=== PATIENT | female | born 1965 | race Caucasian/White ===

== ENCOUNTER 2017-01-07 08:18 | Day surgery (SDC) | payer BC, OTHER ==
[2017-01-04 12:07] LABS: CALCIUM, SERUM 8.8 MG/DL (8.5-10.4); CHLORIDE, SERUM 107 MMOL/L (96-112); CO2 (CARBON DIOXIDE) 22 MMOL/L (24-34); GFR AFRICAN AMERICAN 121 ML/MIN (>=60); GFR NON AFRICAN AMERICAN 104 ML/MIN (>=60); GLUCOSE, SERUM 114 MG/DL (60-99); POTASSIUM, SERUM 4.3 MMOL/L (3.5-5.3); SODIUM, SERUM 139 MMOL/L (135-148)
[2017-01-04 12:08] LABS: BUN (BLOOD UREA NITROGEN) 9 MG/DL (6-23)
--- NOTE | ~2017-01-07 | OP ---
Record Of Operation [facility] [address] [place]. [address] NAME: MEHDI VANCE : 61 STATUS : [facility]#: [id number] AGE: 51 ADM/REG DATE : 01/07/17 MR#: [id number] REPORT SERV DATE: 01/08/17 DICTATED BY: KATH SANCHEZ JR. DATE: 01/07/17 REPORT STATUS : Draft TRANSCRIBED BY: RICHARD DATE: 01/07/17 DATE OF PROCEDURE: 01/07/2017 KETTLE HAND: Daryl Freed. PROCEDURE: Placement of venous access port with C-arm fluoroscopy. PREOPERATIVE DIAGNOSIS: Phlebosclerosis, history of recurrent infections. POSTOPERATIVE DIAGNOSIS: Phlebosclerosis, history of recurrent infections. ANESTHESIA: General. INDICATIONS: The patient has history of multiple infections mostly in the bladder, which have been difficult to treat secondary to multiple antibiotic allergies and need for frequent IV antibiotics. She has phlebosclerosis with poor venous access and port placement is indicated for penitentiary venous access. She has had previous port in the past from both the right and left sides and most recently left had been removed because of fungal infection. FINDINGS: The left subclavian vein was easily accessed. A wire could not initially be passed into the SVC, but with fluoroscopic guidance, a Roadrunner type flexible tip wire was able to be passed into the SVC and in the catheter. When the catheter was then positioned in the distal SVC at the atrial junction, the blood flow was not able to be accomplished. It was withdrawn out to the innominate where good aspiration of blood and flushing was obtained and it was left in this location. It was felt that there could be chronic thrombus or other abnormality from her multiple previous ports. No other significant findings were encountered. DESCRIPTION OF PROCEDURE: With adequate general anesthesia, the patient was placed in supine position. The left and right side of the neck and chest were prepped and draped sterilely. 0.5% Marcaine was used for local filtration. The left subclavian vein was punctured, and a guidewire was introduced as noted above. It was introduced in the SVC and then an infraclavicular incision was made and a subcutaneous pocket was created of a size of the port, previous to the port pocket. It was very superficial and there was retraction of skin, this was placed deep to the scar on the surface of the pectoralis major muscle. Then the peel-away sheath was placed over the wire. The introducer was removed and the catheter was placed over the wire into the SVC and the wire was removed as noted. Aspiration could not be accomplished so this was retracted back into the innominate where it was left in place. It was trimmed and attached to one locking hub, which was secured in place. The port was placed into its pocket and secured with an underlying suture of 2-0 Prolene, which was also secured the locking hub device. Hemostasis with Bovie cautery. The wound was closed with subcutaneous 3-0 Vicryl and dermal with Monocryl. Aspirated blood satisfactorily at this location and was flushed with heparinized saline. Sterile dressings were applied. The patient left the operating room in satisfactory condition. Record Of Operation [facility] [address] [facility] [place]. [address] NAME: MEHDI VANCE : 61 STATUS : [facility] PAT#: [id number] AGE: 51 ADM/REG DATE : 01/07/17 MR#: [id number] REPORT SERV DATE: 01/08/17 DICTATED BY: KATH SANCHEZ JR. DATE: 01/07/17 REPORT STATUS : Draft TRANSCRIBED BY: RICHARD DATE: 01/07/17 ESTIMATED BLOOD LOSS: 50 mL. FILI/RICHARD Kath Sanchez Jr., M.D. / [id number] CC: Angelica Francisco Jr., N.P.
[~2017-01-07 08:18] MED LIST: ACCUNEB INH; ADVAIR HFA PO; ADVAIR115P INH; ALBUTEROL5 INH; ALTA5 PO; AMB10 PO; APRISO0.375 GM PO; AZACT2 IV; AZACTAM1 IM; AZACTAM1 IV; BACLOFEN20 MG PO; BENTYL10 PO; BENTYL20 PO; COREG3 PO; FLUCON150 PO; GGACUDL PO; HYDROCHLOROT25 MG PO; IMOD PO; KAPIDEX30 MG PO; KAPIDEX60 MG PO; KLONO1 PO; L20 PO; LASIX; LIDODERM TOP; LIOR10 PO; LORTAB 10/325; LORTAB10 PO; MAX25 PO; MELATONIN5 M1 PO; METHOC500B PO; NASACORTAQ NAS; NEUR100 PO; NEXIUM40 PO; NORCO1 TAB PO; PERCOCET 10/3251 TAB PO; PERCOCET1 TA4 PO; PHEN50TAB PO; PR25 PO; PREMARIN VAGINAL V; PROAIR HFA INH; PROVENTSOL INH; PROVHFA INH; PVC V; QVAR80 MCG INH; SUCR PO; TEARS NATURA OPH; VALIUM10 MG PO; VENTOLIN HFA INH; VITAMIN D1000 UNI1 PO; VITC500 PO; VSL PROBIOTIC PO; XANAX1 MG PO; ZYVOXPO PO
[2017-01-07 08:52] LABS: BASOPHILS 0.6 %; BASOPHILS ABSOLUTE 0.03 10/3/uL (0.0-0.16); EOSINOPHILS ABSOLUTE 0.05 10/3/uL (0.0-0.53); IMMATURE GRANULOCYTES 0.4 %; IMMATURE GRANULOCYTES ABSOLUTE 0.02 10/3/uL (0.0-0.11); LYMPHOCYTES 32.2 %; LYMPHOCYTES ABSOLUTE 1.69 10/3/uL (0.67-4.30); MEAN CORPUSCULAR HEMOGLOB 24.2 pg (26.0-34.0); MEAN CORPUSCULAR VOLUME 77.2 fL (80-100); MEAN PLATELET VOLUME 9.8 fL (9.2-13.0); MONOCYTES 8.8 %; MONOCYTES ABSOLUTE 0.46 10/3/uL (0.21-1.20); PLATELET COUNT 319 10/3/uL (150-400); RBC DISTRIBUTION WIDTH 18.1 % (12.0-16.0); RED CELL COUNT 4.95 10/6/uL (4.0-5.6); WHITE BLOOD CELLS 5.3 10/3/uL (4.5-10.5)
[2017-01-07 08:53] LABS: HEMATOCRIT 38.2 % (36.0-48.0); MEAN CORPUS HGB CONC 31.4 g/dL (32.0-36.0)
[2017-01-07 08:54] LABS: MANUAL DIFF NO %
[2017-02-20] MEDS ORDERED: PERCOCET 10/3251 TAB PO ×2 (12:34→19:07)
[2017-02-20] MEDS ORDERED: PROBIOTIC PO (12:37)
[2017-02-20] MEDS ORDERED: PR25 PO ×2 (12:39→19:09)
[2017-02-20] MEDS ORDERED: AZACTAM1 IM (13:02)
[2017-02-20] MEDS ORDERED: AZACTAM1 IV (19:08)
[2017-02-20] MEDS ORDERED: AMB10 PO (19:09)
[2017-02-20] MEDS ORDERED: BACLOFEN20 MG PO (19:09)
[2017-02-20] MEDS ORDERED: BENTYL20 PO (19:09)
[2017-02-20] MEDS ORDERED: PROVHFA INH (19:11)
[2017-02-20] MEDS ORDERED: PVC V (19:11)
[2017-02-20] MEDS ORDERED: KAPIDEX60 MG PO (19:11)
[2017-02-20] MEDS ORDERED: ALBUTEROL0.083 % INH (19:12)
[2017-02-20] MEDS ORDERED: ALTA5 PO (19:12)
[2017-02-20] MEDS ORDERED: COREG3 PO (19:12)
[2017-02-20] MEDS ORDERED: POTASSIUM PO (19:13)
[2017-02-20] MEDS ORDERED: L20 PO (19:13)
[2017-02-20] MEDS ORDERED: VSL PROBIOTIC PO (19:14)
[2017-02-20] MEDS ORDERED: VITC500 PO (19:14)
[2017-02-26] MEDS ORDERED: VENTOLIN HFA INH (16:48)
[2017-02-26] MEDS ORDERED: ATV1 PO (16:50)
[2017-02-26] MEDS ORDERED: LIDODERM TOP (16:51)
[2017-02-26] MEDS ORDERED: MONUROL PO (16:52)
[2017-05-31] MEDS ORDERED: TRAZ100 PO (10:04)
== END 2017-01-07 15:24 | disposition home or self-care (01) ==
LOC: SDC 08:18
PROVIDERS: Specialist
PROC: 05H633Z Insertion of Infusion Device into Left Subclavian Vein, Percutaneous Approach (ICD-10-PCS; principal; 2017-01-07 10:00)
DX: I87.8 Other specified disorders of veins (principal); I10 Essential (primary) hypertension; J44.9 Chronic obstructive pulmonary disease, unspecified; K51.90 Ulcerative colitis, unspecified, without complications; Z87.891 Personal history of nicotine dependence; Z88.0 Allergy status to penicillin; Z88.2 Allergy status to sulfonamides; Z88.1 Allergy status to other antibiotic agents; Z88.8 Allergy status to other drugs, medicaments and biological substances
CPT/HCPCS: 71010; 71020; 80048; 85025; 93005; A9270-GY; C1769; C1788; J1170; J1200; J2250; J2270; J2405; J2710; J3010; J3370

== ENCOUNTER 2017-03-11 07:54 | Day surgery (SDC) | payer BC, OTHER ==
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
[~2017-03-11 07:54] MED LIST changes: +ALBUTEROL0.083 % INH; +ATV1 PO; +MONUROL PO; +POTASSIUM PO; +PROBIOTIC PO
[2017-05-31] MEDS ORDERED: TRAZ100 PO (10:04)
== END 2017-03-11 19:25 | disposition home or self-care (01) ==
LOC: SDC 07:54
PROVIDERS: Specialist
PROC: 05PY33Z Removal of Infusion Device from Upper Vein, Percutaneous Approach (ICD-10-PCS; 2017-03-11)
PROC: 05H633Z Insertion of Infusion Device into Left Subclavian Vein, Percutaneous Approach (ICD-10-PCS; 2017-03-11)
PROC: B517YZA Fluoroscopy of Left Subclavian Vein using Other Contrast, Guidance (ICD-10-PCS; 2017-03-11)
PROC: 0JPT0XZ Removal of Tunneled Vascular Access Device from Trunk Subcutaneous Tissue and Fascia, Open Approach (ICD-10-PCS; principal; 2017-03-11 10:00)
PROC: 0JH60XZ Insertion of Tunneled Vascular Access Device into Chest Subcutaneous Tissue and Fascia, Open Approach (ICD-10-PCS; 2017-03-11 10:00)
DX: T82.524A Displacement of infusion catheter, initial encounter (principal); I10 Essential (primary) hypertension; J44.9 Chronic obstructive pulmonary disease, unspecified; K21.9 Gastro-esophageal reflux disease without esophagitis; Z88.0 Allergy status to penicillin; Z91.041 Radiographic dye allergy status; Z79.891 Long term (current) use of opiate analgesic; Z79.899 Other long term (current) drug therapy; Z88.2 Allergy status to sulfonamides; Z90.710 Acquired absence of both cervix and uterus; Z90.49 Acquired absence of other specified parts of digestive tract; Z98.890 Other specified postprocedural states; Z90.89 Acquired absence of other organs
CPT/HCPCS: 71020; 77001; 80053; 85025; 88300; A9270-GY; C1769; C1788; J1170; J1200; J2250; J2370; J2405; J2710; J3010; J3370